=== PATIENT | female | born 1950 | race Caucasian/White ===

== ENCOUNTER 2016-08-08 15:35 | Emergency (ER) | payer MEDICARE, BC ==
[~2016-08-08] VITALS: Ht 167.6 cm; Wt 82.0 kg
[~2016-08-08 15:35] MED LIST: ESTRADIOL; LEXAPRO PO; OXYC60TA8 PO; PRAVASTATIN; TRAZ100T15 PO
[2016-08-08] MEDS ORDERED: SODIUM CHLORIDE FLUSH 10ML SYR IVF ONE (16:00)
[2016-08-08] MEDS ORDERED: SODIUM CHLORIDE 0.9% 1,000ML IVBOLUS ONE (16:00)
[2016-08-08] MEDS ORDERED: ONDANSETRON 2MG/ML, 2ML IVPush ONE (16:00)
[2016-08-08] MEDS ORDERED: HYDR-879 PO (16:16)
[2016-08-08 16:27] LABS: ASPARTATE AMINO TRANSFERASE 20 U/L (15-37); BLOOD UREA NITROGEN 22 mg/dL (7-18)
[2016-08-08] MEDS ORDERED: ONDANSETRON 2MG/ML, 2ML ONE (16:28)
[2016-08-08 16:39] VITALS: BP 126/74
== END 2016-08-08 18:12 | disposition home or self-care (01) ==
LOC: ED 18:06
DX: A08.4 Viral intestinal infection, unspecified (principal); E86.0 Dehydration; R11.2 Nausea with vomiting, unspecified; I10 Essential (primary) hypertension
CPT/HCPCS: 36415; 80053; 85025; 93005; 96361; 96374; 99285; J2405; J7030

== ENCOUNTER 2018-02-27 08:56 | Emergency (ER) | payer MEDICARE, BC ==
[~2018-02-27] VITALS: Ht 165.1 cm; Wt 87.7 kg
[~2018-02-27 08:56] MED LIST changes: +HYDR-3622 PO; +TRAZ-137 PO; -TRAZ100T15 PO
[2018-02-27] MEDS ORDERED: OXYcodone/APAP 5/325MG TABLET PO ONE (09:30)
[2018-02-27] MEDS ORDERED: OXYcodone/APAP 5/325MG TABLET ONE (09:33)
[2018-02-27 09:50] LABS: ANION GAP 8 mmol/L (5-15); BASOPHILS # (AUTO) 0.03 x10^3/uL (0-0.1); BASOPHILS % (AUTO) 0 % (0-1); CALCIUM 9.2 mg/dL (8.5-10.1); CHLORIDE 105 mmol/L (98-107); CREATININE 1.69 mg/dL (0.55-1.02); EOSINOPHILS % (AUTO) 1 % (1-7); LYMPHOCYTES # (AUTO) 1.17 x10^3/uL (1-3.4); LYMPHOCYTES % (AUTO) 15 % (22-44); MD NO; MEAN CORPUSCULAR HGB CONC 33.5 g/dL (32.4-35.8); MEAN CORPUSCULAR VOLUME 92.4 fL (80-100); MEAN PLATELET VOLUME 7.8 fL (7.4-10.4); MONOCYTES % (AUTO) 9 % (2-9); NEUTROPHILS # (AUTO) 5.67 x10^3/uL (1.8-6.8); NEUTROPHILS % (AUTO) 74 % (42-75); PLATELET COUNT 321 x10^3/uL (130-400); RED CELL DISTRIBUTION WIDTH 15.7 % (9.6-15.2)
[2018-02-27 10:31] VITALS: BP 147/99
--- NOTE | 2018-02-27 10:32 | NUR ---
TASK RN: Patient/Caregiver given discharge instructions and they have confirmed that they understand the instructions. Patient ambulatory with steady gait. PAIN LEVEL 6/10
== END 2018-02-27 10:33 | disposition home or self-care (01) ==
LOC: ED 09:53
DX: S39.012A Strain of muscle, fascia and tendon of lower back, initial encounter (principal); S30.0XXA Contusion of lower back and pelvis, initial encounter; I10 Essential (primary) hypertension; I12.9 Hypertensive chronic kidney disease with stage 1 through stage 4 chronic kidney disease, or unspecified chronic kidney disease; N18.9 Chronic kidney disease, unspecified; W01.0XXA Fall on same level from slipping, tripping and stumbling without subsequent striking against object, initial encounter; Y93.89 Activity, other specified; Y92.009 Unspecified place in unspecified non-institutional (private) residence as the place of occurrence of the external cause; Y99.8 Other external cause status
CPT/HCPCS: 36415; 72190; 80048; 82040; 85025; 99284

== ENCOUNTER 2018-12-27 20:57 | Emergency (ER) | payer MEDICARE, BC ==
[2018-12-27] MEDS ORDERED: LORazepam 2 MG/ML, 1ML ONE (21:25)
--- NOTE | 2018-12-27 21:27 | NUR ---
PT STATES SHE STOPPED TAKING CLONAZAPAM A FEW DAYS AGO AFTER BEING ON IT FOR SEVERAL YEARS. PT HAD AN EPISODE OF BM INCONTINENCE ON GURNEY IN ED.
[2018-12-27] MEDS ORDERED: LORazepam 2 MG/ML, 1ML IVPush ONE (21:30)
[2018-12-27 21:45] LABS: BASOPHILS # (AUTO) 0.02 x10^3/uL (0-0.1); BASOPHILS % (AUTO) 0 % (0-1); EOSINOPHILS # (AUTO) 0.06 x10^3/uL (0-0.4); EOSINOPHILS % (AUTO) 1 % (1-7); LYMPHOCYTES # (AUTO) 1.74 x10^3/uL (1-3.4); LYMPHOCYTES % (AUTO) 21 % (22-44); MD NO; MEAN CORPUSCULAR HEMOGLOBIN 31.2 pg (27.0-34.8); MEAN CORPUSCULAR HGB CONC 33.2 g/dL (32.4-35.8); MEAN CORPUSCULAR VOLUME 94.1 fL (80-100); MEAN PLATELET VOLUME 7.8 fL (7.4-10.4); MONOCYTES # (AUTO) 0.55 x10^3/uL (0.2-0.8); MONOCYTES % (AUTO) 7 % (2-9); NEUTROPHILS # (AUTO) 6.01 x10^3/uL (1.8-6.8); NEUTROPHILS % (AUTO) 72 % (42-75); PLATELET COUNT 287 x10^3/uL (130-400); RED BLOOD COUNT 4.88 x10^6/uL (3.82-5.3); RED CELL DISTRIBUTION WIDTH 15.2 % (9.6-15.2)
[2018-12-27 21:52] LABS: ANION GAP 15 mmol/L (5-15); CALCIUM 9.5 mg/dL (8.5-10.1); CHLORIDE 110 mmol/L (98-107); CREATININE 1.04 mg/dL (0.55-1.02)
[2018-12-27 21:55] LABS: TROPONIN I < 0.015 ng/mL (0.000-0.045)
--- NOTE | 2018-12-27 22:17 | NUR ---
PT HAS CALMED DOWN AND NO LONGER WORKING TO BREATHING. PT CLEANED OF FECAL MATERIAL AND FRESH LINENS APPLIED TO GURNEY. PT RESTING ON GURNEY WITH EYES CLOSED, RESP EVEN AND UNLABORED. AT BEDSIDE. PT C/O PAIN IN RIGHT "A LITTLE BIT" Addendum: 12/27/18 at 2228 by [email or web address] RIGHT SHOULDER
--- NOTE | 2018-12-27 22:28 | NUR ---
PT POOR HISTORIAN
[2018-12-27 22:59] VITALS: BP 178/90
[2018-12-27 23:29] LABS: ALANINE AMINOTRANSFERASE 60 U/L (12-78); ALKALINE PHOSPHATASE 90 U/L (45-117); BILIRUBIN, DIRECT 0.1 mg/dL (0.1-0.2); BILIRUBIN,INDIRECT 0.3 mg/dL (0.0-2.0); BILIRUBIN,TOTAL 0.4 mg/dL (0.2-1.0); TOTAL PROTEIN 8.3 g/dL (6.4-8.2)
== END 2018-12-27 23:30 | disposition home or self-care (01) ==
LOC: ED 23:24
DX: F41.1 Generalized anxiety disorder (principal); F10.129 Alcohol abuse with intoxication, unspecified; R06.4 Hyperventilation; I10 Essential (primary) hypertension; Z91.14 Patient's other noncompliance with medication regimen; Y90.5 Blood alcohol level of 100-119 mg/100 ml
CPT/HCPCS: 36415; 71045; 80048; 80076; 80307; 82040; 84484; 85025; 93005; 96374; 99284; J2060

== ENCOUNTER 2019-07-22 14:32 | Inpatient (IN) | payer MEDICARE, BC ==
[~2019-07-22] VITALS: Ht 165.1 cm; Wt 77.9 kg
[~2019-07-22 14:32] MED LIST changes: -TRAZ-137 PO; +TRAZ-175 PO
--- NOTE | 2019-07-22 14:53 | NUR ---
BIB [facility]. PT WAS FOUND UNRESPONSIVE AND SNORING. FSBS 16. [facility] GAVE 25 GM OF D10 IV WITH BS IMPROVEMENT. ANOTHER 10 GM OF D5 GIVEN WITH FSBS AT 190. PT AOX4 AND DOES NOT REMEMBER THE EVENT. HX OF ETOH ABUSE. PT PLACED ON HOSPICE MUSIC THERAPY. WILL CONTINUE TO MONITOR PT.
--- NOTE | 2019-07-22 15:03 | NUR ---
TASK RN: TECH AT BEDSIDE FOR EKG.
--- NOTE | 2019-07-22 15:24 | NUR ---
BREAK RN: PT GIVEN FOOD AND JUICE
--- NOTE | 2019-07-22 15:33 | NUR ---
XRAY AT BEDSIDE
[2019-07-22] MEDS ORDERED: SODIUM CHLORIDE 0.9% 1,000ML IVBOLUS ONE (16:00)
[2019-07-22 16:02] LABS: BASOPHILS # (AUTO) 0.02 x10^3/uL (0-0.1); BASOPHILS % (AUTO) 0 % (0-1); EOSINOPHILS % (AUTO) 0 % (1-7); LYMPHOCYTES % (AUTO) 4 % (22-44); MD NO; MEAN CORPUSCULAR HEMOGLOBIN 30.9 pg (27.0-34.8); MEAN CORPUSCULAR HGB CONC 32.8 g/dL (32.4-35.8); MEAN CORPUSCULAR VOLUME 94.1 fL (80-100); MEAN PLATELET VOLUME 8.1 fL (7.4-10.4); MONOCYTES # (AUTO) 0.15 x10^3/uL (0.2-0.8); MONOCYTES % (AUTO) 2 % (2-9); NEUTROPHILS # (AUTO) 9.53 x10^3/uL (1.8-6.8); NEUTROPHILS % (AUTO) 94 % (42-75); PLATELET COUNT 320 x10^3/uL (130-400); RED BLOOD COUNT 4.29 x10^6/uL (3.82-5.3); RED CELL DISTRIBUTION WIDTH 13.1 % (9.6-15.2)
[2019-07-22 16:09] LABS: ALANINE AMINOTRANSFERASE 26 U/L (12-78); ANION GAP 9 mmol/L (5-15); CALCIUM 8.8 mg/dL (8.5-10.1); CHLORIDE 107 mmol/L (98-107); CREATININE 0.74 mg/dL (0.55-1.02)
[2019-07-22 16:13] LABS: ALKALINE PHOSPHATASE 68 U/L (45-117); BILIRUBIN,TOTAL 0.2 mg/dL (0.2-1.0); TOTAL PROTEIN 7.5 g/dL (6.4-8.2); TROPONIN I < 0.015 ng/mL (0.000-0.045)
[2019-07-22 16:45] LABS: MICROSCOPIC NOT IND
[2019-07-22 16:56] LABS: AMPHETAMINE SCREEN, URINE Negative (Negative); BARBITURATE SCREEN, URINE Negative (Negative); BENZODIAZEPINE SCREEN, URINE Negative (Negative); CANNABINOID SCREEN, URINE Negative (Negative); COCAINE SCREEN, URINE Negative (Negative); METHADONE SCREEN, URINE Negative (Negative); OPIATE SCREEN, URINE Positive (Negative)
[2019-07-22] MEDS ORDERED: DEXTROSE 50%, 50ML SYRINGE ONE (17:44)
[2019-07-22] MEDS ORDERED: DEXTROSE 50%, 50ML SYRINGE IVPush ONE (18:00)
[2019-07-22] MEDS ORDERED: DEXTROSE 10% 1,000 ML IV SCH (18:00)
--- NOTE | 2019-07-22 18:05 | NUR ---
WENT INTO ROOM TO CHECK ON PT. PER DAUGHTER, THE PT SUDDENLY BECAME "SWEATY AND HOT". ASSESSED PT'S VS. VS STABLE. CHECKED FSBS AND IT WAS 23. INFORMED MD AND PER MD ADMINISTERED 1 AMP OF D50. BS RECHECKED AND 125. PT VS STABLE AND BECAME AOX4. STARTED PT ON CONTINUOUS DRIP OF D10. WILL CONTINUE TO MONITOR.
[2019-07-22] MEDS ORDERED: ENALAPRILAT 1.25 MG/ML, 2ML IVPush PRN (19:00)
[2019-07-22] MEDS ORDERED: DEXTROSE 4 GM TAB.CHEW PO PRN (19:00)
[2019-07-22] MEDS ORDERED: BISACODYL 10 MG SUPP PR PRN (19:00)
[2019-07-22] MEDS ORDERED: POLYETHYLENE GLYCOL 17 GM PACKET PO PRN (19:00)
[2019-07-22] MEDS ORDERED: GLUCAGON 1 MG IM PRN (19:00)
[2019-07-22] MEDS ORDERED: ONDANSETRON ODT 4 MG PO PRN (19:00)
[2019-07-22] MEDS ORDERED: ONDANSETRON 2MG/ML, 2ML IVPush PRN (19:00)
[2019-07-22] MEDS ORDERED: DOCUSATE 100 MG CAPSULE PO PRN (19:00)
--- NOTE | 2019-07-22 19:28 | NUR ---
Pt given 8oz of OJ and drank without difficulty with RN assistance.
[2019-07-22] MEDS: DEXTROSE 10% 1,000 ML IV SCH (19:59)
[2019-07-22] MEDS: ENOXAPARIN 40 MG/0.4 ML SQ SCH (20:00)
[2019-07-22] MEDS: DEXTROSE 50%, 50ML SYRINGE IVPush PRN ×2 (20:00→22:00)
[2019-07-22] MEDS: SODIUM CHLORIDE FLUSH 10ML SYR IVF SCH (20:06)
[2019-07-22] MEDS ORDERED: CLON1TAB11 PO (20:19)
[2019-07-22] MEDS ORDERED: DICL100G29 TP (20:25)
[2019-07-22] MEDS ORDERED: OXYC-432 PO (20:25)
[2019-07-22] MEDS ORDERED: LIOT25TA12 PO (20:25)
[2019-07-22] MEDS ORDERED: ROSU5TAB12 PO (20:25)
[2019-07-22] MEDS ORDERED: ATEN25TA PO (20:25)
[2019-07-22] MEDS ORDERED: LISI-420 PO (20:25)
[2019-07-22] MEDS ORDERED: AMLO5TAB10 PO (20:25)
[2019-07-22] MEDS ORDERED: EZET10TA48 PO (20:25)
[2019-07-22] MEDS ORDERED: FLUO40CA2 PO (20:25)
[2019-07-22] MEDS ORDERED: PROG100C10 PO (20:25)
[2019-07-22] MEDS ORDERED: MORP-30 PO (20:25)
[2019-07-23 00:14] VITALS: BP 135/66
[2019-07-23] MEDS ORDERED: OMNIPAQUE 350 MG/ML, 100ML BOTTLE ONE (00:19)
[2019-07-23] MEDS: DEXTROSE 10% 1,000 ML IV SCH ×3 (01:30→07:58)
[2019-07-23] MEDS: ACETAMINOPHEN 325 MG TABLET PO PRN ×4 (01:33→20:33)
[2019-07-23] MEDS ORDERED: OXYcodone/APAP 10/325MG TABLET PO ONE (05:25)
[2019-07-23 06:19] LABS: ALBUMIN 2.7 g/dL (3.4-5.0); ANION GAP 7 mmol/L (5-15); CALCIUM 8.9 mg/dL (8.5-10.1); CHLORIDE 111 mmol/L (98-107)
[2019-07-23 06:22] LABS: ALANINE AMINOTRANSFERASE 23 U/L (12-78); ALKALINE PHOSPHATASE 61 U/L (45-117); BILIRUBIN,TOTAL 0.4 mg/dL (0.2-1.0); CREATININE 0.75 mg/dL (0.55-1.02); TOTAL PROTEIN 6.7 g/dL (6.4-8.2)
[2019-07-23 06:25] LABS: BASOPHILS # (AUTO) 0.02 x10^3/uL (0-0.1); BASOPHILS % (AUTO) 0 % (0-1); EOSINOPHILS % (AUTO) 0 % (1-7); LYMPHOCYTES # (AUTO) 1.07 x10^3/uL (1-3.4); LYMPHOCYTES % (AUTO) 14 % (22-44); MD NO; MEAN CORPUSCULAR HEMOGLOBIN 30.5 pg (27.0-34.8); MEAN CORPUSCULAR HGB CONC 32.5 g/dL (32.4-35.8); MEAN CORPUSCULAR VOLUME 93.6 fL (80-100); MEAN PLATELET VOLUME 8.4 fL (7.4-10.4); MONOCYTES # (AUTO) 0.58 x10^3/uL (0.2-0.8); MONOCYTES % (AUTO) 8 % (2-9); NEUTROPHILS # (AUTO) 5.76 x10^3/uL (1.8-6.8); NEUTROPHILS % (AUTO) 78 % (42-75); PLATELET COUNT 278 x10^3/uL (130-400); RED BLOOD COUNT 3.87 x10^6/uL (3.82-5.3); RED CELL DISTRIBUTION WIDTH 13.7 % (9.6-15.2)
[2019-07-23] MEDS: EZETIMIBE 10 MG TABLET PO SCH (07:57)
[2019-07-23] MEDS: LISINOPRIL 20 MG TABLET PO SCH (07:57)
[2019-07-23 07:58] VITALS: BP 130/74
[2019-07-23] MEDS: ATENOLOL 25 MG TABLET PO SCH (07:58)
[2019-07-23] MEDS: AMLODIPINE 5 MG TABLET PO SCH (07:58)
[2019-07-23] MEDS: FLUOXETINE HCL 20 MG CAPSULE PO SCH (07:58)
[2019-07-23] MEDS ORDERED: LIDODERM 5% PATCH TD ONE (08:18)
[2019-07-23] MEDS: LIDODERM 5% PATCH TD SCH (08:28)
[2019-07-23] MEDS: SODIUM CHLORIDE FLUSH 10ML SYR IVF SCH ×2 (08:28→20:27)
[2019-07-23] MEDS ORDERED: ROSUVASTATIN CALCIUM PO SCH (09:00)
[2019-07-23] MEDS ORDERED: LIOTHYRONINE 25 MCG TABLET PO SCH (09:00)
[2019-07-23] MEDS ORDERED: ATORVASTATIN 20 MG TABLET PO SCH (09:00)
[2019-07-23] MEDS: DEXTROSE 5% 1,000 ML IV SCH (10:12)
[2019-07-23 12:49] VITALS: BP 115/67
[2019-07-23] MEDS: IBUPROFEN 200 MG TABLET PO PRN ×2 (16:32→22:36)
[2019-07-23 20:19] VITALS: BP 147/83
[2019-07-23] MEDS: ATORVASTATIN 20 MG TABLET PO SCH (20:27)
[2019-07-23] MEDS: ENOXAPARIN 40 MG/0.4 ML SQ SCH (20:27)
[2019-07-23] MEDS: LIDODERM REMOVE PATCH NOTE XX SCH (20:27)
[2019-07-24 00:15] VITALS: BP 159/92
[2019-07-24] MEDS: ACETAMINOPHEN 325 MG TABLET PO PRN ×2 (02:10→08:02)
[2019-07-24] MEDS: LIOTHYRONINE 5 MCG TABLET PO SCH (04:47)
[2019-07-24] MEDS: IBUPROFEN 200 MG TABLET PO PRN (04:47)
[2019-07-24] MEDS: DEXTROSE 5% 1,000 ML IV SCH (04:50)
[2019-07-24 05:40] LABS: BASOPHILS # (AUTO) 0.02 x10^3/uL (0-0.1); BASOPHILS % (AUTO) 0 % (0-1); EOSINOPHILS # (AUTO) 0.01 x10^3/uL (0-0.4); EOSINOPHILS % (AUTO) 0 % (1-7); LYMPHOCYTES # (AUTO) 1.33 x10^3/uL (1-3.4); LYMPHOCYTES % (AUTO) 22 % (22-44); MD NO; MEAN CORPUSCULAR HEMOGLOBIN 30.6 pg (27.0-34.8); MEAN CORPUSCULAR HGB CONC 32.8 g/dL (32.4-35.8); MEAN CORPUSCULAR VOLUME 93.5 fL (80-100); MEAN PLATELET VOLUME 8.2 fL (7.4-10.4); MONOCYTES % (AUTO) 10 % (2-9); NEUTROPHILS # (AUTO) 4.05 x10^3/uL (1.8-6.8); NEUTROPHILS % (AUTO) 68 % (42-75); PLATELET COUNT 311 x10^3/uL (130-400); RED BLOOD COUNT 4.11 x10^6/uL (3.82-5.3); RED CELL DISTRIBUTION WIDTH 13.5 % (9.6-15.2)
[2019-07-24 05:46] LABS: ALBUMIN 3.2 g/dL (3.4-5.0); ANION GAP 9 mmol/L (5-15); CALCIUM 9.5 mg/dL (8.5-10.1); CHLORIDE 108 mmol/L (98-107)
[2019-07-24 05:51] LABS: ALANINE AMINOTRANSFERASE 29 U/L (12-78); ALKALINE PHOSPHATASE 67 U/L (45-117); BILIRUBIN,TOTAL 0.5 mg/dL (0.2-1.0); TOTAL PROTEIN 7.6 g/dL (6.4-8.2)
[2019-07-24 07:10] VITALS: BP 156/90
[2019-07-24] MEDS: EZETIMIBE 10 MG TABLET PO SCH (08:01)
[2019-07-24] MEDS: LISINOPRIL 20 MG TABLET PO SCH (08:01)
[2019-07-24] MEDS: ATENOLOL 25 MG TABLET PO SCH (08:01)
[2019-07-24] MEDS: FLUOXETINE HCL 20 MG CAPSULE PO SCH (08:01)
[2019-07-24] MEDS: AMLODIPINE 5 MG TABLET PO SCH (08:01)
[2019-07-24] MEDS: SODIUM CHLORIDE FLUSH 10ML SYR IVF SCH ×2 (08:01→20:32)
[2019-07-24] MEDS: LIDODERM 5% PATCH TD SCH (08:02)
[2019-07-24 13:55] VITALS: BP 140/98
[2019-07-24] MEDS: OXYcodone/APAP 5/325MG TABLET PO PRN ×2 (14:04→20:42)
[2019-07-24 19:27] VITALS: BP 147/89
[2019-07-24] MEDS: LIDODERM REMOVE PATCH NOTE XX SCH (20:30)
[2019-07-24] MEDS: ENOXAPARIN 40 MG/0.4 ML SQ SCH (20:31)
[2019-07-24] MEDS: ATORVASTATIN 20 MG TABLET PO SCH (20:31)
[2019-07-25] MEDS: DEXTROSE 5% 1,000 ML IV SCH (00:32)
[2019-07-25 00:39] VITALS: BP 147/95
[2019-07-25] MEDS: OXYcodone/APAP 5/325MG TABLET PO PRN ×2 (02:41→08:51)
[2019-07-25] MEDS: LIOTHYRONINE 5 MCG TABLET PO SCH (05:52)
[2019-07-25] MEDS: SODIUM CHLORIDE FLUSH 10ML SYR IVF SCH (08:01)
[2019-07-25] MEDS: LIDODERM 5% PATCH TD SCH (08:01)
[2019-07-25] MEDS: FLUOXETINE HCL 20 MG CAPSULE PO SCH (08:02)
[2019-07-25] MEDS: EZETIMIBE 10 MG TABLET PO SCH (08:02)
[2019-07-25] MEDS: AMLODIPINE 5 MG TABLET PO SCH (08:02)
[2019-07-25] MEDS: ATENOLOL 25 MG TABLET PO SCH (08:03)
[2019-07-25 08:14] VITALS: BP 142/99
[2019-07-25] MEDS ORDERED: LISINOPRIL 20 MG TABLET PO SCH (09:00)
[2019-07-25] MEDS ORDERED: LISI-170 PO (10:42)
[2019-07-25] MEDS ORDERED: LIOT5TAB10 PO (10:42)
[2019-07-25] MEDS ORDERED: AMLO10TA8 PO (10:42)
[2019-07-25] MEDS ORDERED: LIDO700A20 TD (10:42)
[2019-07-25 13:54] VITALS: BP 123/77
[2019-07-26] MEDS ORDERED: AMLODIPINE 10 MG TAB PO SCH (09:00)
== END 2019-07-25 15:41 | disposition home or self-care (01) | DRG 640 ==
LOC: ED 17:15 → EDIP 17:16 → ED 17:33 → 4NW 19:38 → 4NE 20:12
PROVIDERS: ADMIT Internal Medicine; ATTEND Internal Medicine
DX: E15 Nondiabetic hypoglycemic coma (principal); G93.41 Metabolic encephalopathy; F13.20 Sedative, hypnotic or anxiolytic dependence, uncomplicated; E03.9 Hypothyroidism, unspecified; F41.1 Generalized anxiety disorder; G89.29 Other chronic pain; I10 Essential (primary) hypertension; M79.7 Fibromyalgia; Z80.1 Family history of malignant neoplasm of trachea, bronchus and lung; Z85.828 Personal history of other malignant neoplasm of skin; Z03.818 Encounter for observation for suspected exposure to other biological agents ruled out; Z86.59 Personal history of other mental and behavioral disorders; Z90.710 Acquired absence of both cervix and uterus; Z79.899 Other long term (current) drug therapy
CPT/HCPCS: 36415; 70450; 71045; 74170; 80053; 80307; 80377; 81003; 82607; 82962; 83525; 83735; 84100; 84145; 84436; 84443; 84484; 84681; 85025; 85651; 93005; 96374; 96376; 99291; G0378; J1650; J7070; Q9967; G0481; J7030; U0001-CS

== ENCOUNTER 2020-08-29 23:18 | Emergency (ER) | payer MEDICARE, BC ==
[~2020-08-29] VITALS: Ht 165.1 cm; Wt 69.7 kg
[~2020-08-29 23:18] MED LIST changes: +AMLO-210 PO; +AMLO-211 PO; +ATEN25TA PO; +CLON1TAB11 PO; +DICL100G29 TP; +EZET10TA48 PO; +FLUO40CA2 PO; +LIDO700A20 TD; +LIOT25TA12 PO; +LIOT5TAB10 PO; +LISI-170 PO; +LISI20TA21 PO; +MORP-30 PO; +OXYC1TAB18 PO; +PROG100C10 PO; +ROSU5TAB12 PO
[2020-08-30] MEDS ORDERED: ONDANSETRON 2MG/ML, 2ML ONE (00:10)
[2020-08-30] MEDS ORDERED: LORazepam 2 MG/ML, 1ML ONE ×2 (00:11→02:42)
[2020-08-30] MEDS ORDERED: LORazepam 2 MG/ML, 1ML IVPush ONE ×2 (00:30→03:00)
[2020-08-30] MEDS ORDERED: ONDANSETRON 2MG/ML, 2ML IVPush ONE (00:30)
[2020-08-30] MEDS ORDERED: SODIUM CHLORIDE 0.9% 1,000ML IVBOLUS ONE (00:30)
[2020-08-30 00:43] LABS: BASOPHILS % (AUTO) 0 % (0-1); EOSINOPHILS % (AUTO) 0 % (1-7); LYMPHOCYTES % (AUTO) 11 % (22-44); MEAN CORPUSCULAR HEMOGLOBIN 29.8 pg (27.0-34.8); MEAN CORPUSCULAR HGB CONC 33.9 g/dL (32.4-35.8); MEAN PLATELET VOLUME 7.4 fL (7.4-10.4); MONOCYTES % (AUTO) 8 % (2-9); NEUTROPHILS % (AUTO) 81 % (42-75); PLATELET COUNT 287 x10^3/uL (130-400); RED BLOOD COUNT 4.71 x10^6/uL (3.82-5.3); RED CELL DISTRIBUTION WIDTH 14.1 % (9.6-15.2)
[2020-08-30 00:55] LABS: ALBUMIN 3.9 g/dL (3.4-5.0); ANION GAP 9 mmol/L (5-15); CALCIUM 8.8 mg/dL (8.5-10.1); CHLORIDE 102 mmol/L (98-107)
[2020-08-30 01:01] LABS: ALANINE AMINOTRANSFERASE 180 U/L (12-78); ALKALINE PHOSPHATASE 99 U/L (45-117); BILIRUBIN,TOTAL 0.9 mg/dL (0.2-1.0); CREATININE 0.78 mg/dL (0.55-1.02); TROPONIN I < 0.015 ng/mL (0.000-0.045)
--- NOTE | 2020-08-30 02:54 | NUR ---
Medicated per order with ativan, IV dc cath intact. VSS. Pt given rx and instruct, will fu with pcp or blanche villanueva. Return to ER if worse or concerns. picking pt up.
[2020-08-30 02:55] VITALS: BP 135/71
== END 2020-08-30 03:16 | disposition home or self-care (01) ==
LOC: ED 08-30 02:46
DX: F10.131 Alcohol abuse with withdrawal delirium (principal); F41.9 Anxiety disorder, unspecified; I10 Essential (primary) hypertension; Y90.0 Blood alcohol level of less than 20 mg/100 ml
CPT/HCPCS: 36415; 71045; 80053; 80320; 84484; 85025; 93005; 96361; 96374; 96375; 96376; 99285; J2060; J2405; J7030; G0480

== ENCOUNTER 2020-09-12 08:38 | Inpatient (IN) | payer MEDICARE, BC ==
[~2020-09-12] VITALS: Ht 165.1 cm; Wt 72.4 kg
[2020-09-12] MEDS ORDERED: SODIUM CHLORIDE FLUSH 10ML SYR IVF ONE (09:30)
[2020-09-12] MEDS ORDERED: SODIUM CHLORIDE 0.9% 1,000ML IVBOLUS ONE ×2 (09:30→12:00)
[2020-09-12] MEDS ORDERED: ONDANSETRON 2MG/ML, 2ML IVPush ONE (09:30)
[2020-09-12] MEDS ORDERED: THIAMINE 100MG TABLET PO ONE (09:30)
[2020-09-12 09:36] LABS: BASOPHILS % (AUTO) 1 % (0-1); EOSINOPHILS % (AUTO) 0 % (1-7); LYMPHOCYTES % (AUTO) 14 % (22-44); MEAN CORPUSCULAR HEMOGLOBIN 29.5 pg (27.0-34.8); MEAN CORPUSCULAR HGB CONC 33.3 g/dL (32.4-35.8); MEAN PLATELET VOLUME 7.1 fL (7.4-10.4); MONOCYTES % (AUTO) 7 % (2-9); NEUTROPHILS % (AUTO) 79 % (42-75); PLATELET COUNT 424 x10^3/uL (130-400); RED BLOOD COUNT 4.71 x10^6/uL (3.82-5.3); RED CELL DISTRIBUTION WIDTH 14.9 % (9.6-15.2)
[2020-09-12] MEDS ORDERED: ONDANSETRON 2MG/ML, 2ML ONE (09:42)
[2020-09-12] MEDS ORDERED: THIAMINE 100MG TABLET ONE (09:42)
[2020-09-12] MEDS ORDERED: LORazepam 2 MG/ML, 1ML ONE ×3 (09:42→15:50)
[2020-09-12 09:43] LABS: ALANINE AMINOTRANSFERASE 280 U/L (12-78); ANION GAP 15 mmol/L (5-15); CALCIUM 9.5 mg/dL (8.5-10.1); CHLORIDE 102 mmol/L (98-107); CREATININE 0.86 mg/dL (0.55-1.02)
[2020-09-12 09:45] LABS: ALKALINE PHOSPHATASE 109 U/L (45-117); BILIRUBIN,TOTAL 1.1 mg/dL (0.2-1.0); TOTAL PROTEIN 8.3 g/dL (6.4-8.2)
[2020-09-12] MEDS: LORazepam 2 MG/ML, 1ML IVPush PRN ×4 (09:47→17:33)
--- NOTE | 2020-09-12 11:10 | NUR ---
Pt wheeled to bathroom for UA. Pt unsteady on feet. A&Ox4.
[2020-09-12 11:29] LABS: MICROSCOPIC INDICATED
--- NOTE | 2020-09-12 12:08 | NUR ---
TASK RN: U/S AT BEDSIDE, LUNCH TRAY PROVIDED OKAY PER MD.
[2020-09-12] MEDS ORDERED: ENALAPRILAT 1.25 MG/ML, 2ML IVPush PRN (14:30)
--- NOTE | 2020-09-12 14:55 | NUR ---
[facility]. Med ordered from pharmacy.
--- NOTE | 2020-09-12 14:56 | NUR ---
Anika, daughter, ask patient about what is okay to update.
[2020-09-12] MEDS ORDERED: LORazepam 1MG TABLET PO PRN ×2 (15:00)
[2020-09-12] MEDS ORDERED: LORazepam 0.5MG TABLET PO PRN (15:00)
[2020-09-12] MEDS ORDERED: LORazepam 2 MG/ML, 1ML IV PRN ×3 (15:00)
--- NOTE | 2020-09-12 15:47 | NUR ---
Med sent for at 1455.
[2020-09-12] MEDS: LORazepam 2 MG/ML, 1ML IV PRN ×2 (15:51→19:42)
--- NOTE | 2020-09-12 15:56 | NUR ---
Pharmacy called to inquire about medication.
--- NOTE | 2020-09-12 17:10 | NUR ---
Pt transported with all belongings which are shirt, pants and keys.
[2020-09-12 17:22] VITALS: BP 158/86
[2020-09-12] MEDS: POTASSIUM CHLORIDE 20 MEQ, MAGNESIUM SULFATE 2 GM, THIAMINE 200 MG, MVI ADULT 10 ML, FO... IV SCH (17:57)
[2020-09-12] MEDS: ENOXAPARIN 40 MG/0.4 ML SQ SCH (17:58)
[2020-09-12 18:17] VITALS: BP 158/86
[2020-09-12] MEDS: ACETAMINOPHEN 325 MG TABLET PO PRN (19:43)
[2020-09-12 19:50] VITALS: BP 162/94
[2020-09-12 20:42] VITALS: BP 160/92
[2020-09-13] VITALS (8 sets, daily range): BP systolic 145–171; BP diastolic 81–110
[2020-09-13] MEDS: LORazepam 1MG TABLET PO PRN ×3 (01:17→11:45)
[2020-09-13 05:10] LABS: BASOPHILS % (AUTO) 1 % (0-1); EOSINOPHILS % (AUTO) 0 % (1-7); LYMPHOCYTES % (AUTO) 32 % (22-44); MEAN CORPUSCULAR HEMOGLOBIN 29.9 pg (27.0-34.8); MEAN CORPUSCULAR HGB CONC 33.4 g/dL (32.4-35.8); MEAN PLATELET VOLUME 7.2 fL (7.4-10.4); MONOCYTES % (AUTO) 14 % (2-9); NEUTROPHILS % (AUTO) 53 % (42-75); PLATELET COUNT 309 x10^3/uL (130-400); RED BLOOD COUNT 4.28 x10^6/uL (3.82-5.3); RED CELL DISTRIBUTION WIDTH 14.9 % (9.6-15.2)
[2020-09-13] MEDS: ACETAMINOPHEN 325 MG TABLET PO PRN ×3 (05:10→20:10)
[2020-09-13] MEDS: DOCUSATE 100 MG CAPSULE PO PRN ×2 (05:10→11:45)
[2020-09-13 05:20] LABS: ANION GAP 7 mmol/L (5-15); CALCIUM 8.9 mg/dL (8.5-10.1); CHLORIDE 104 mmol/L (98-107); CREATININE 0.83 mg/dL (0.55-1.02)
[2020-09-13 05:21] LABS: ALANINE AMINOTRANSFERASE 188 U/L (12-78); ALBUMIN 3.4 g/dL (3.4-5.0)
[2020-09-13 05:23] LABS: ALKALINE PHOSPHATASE 94 U/L (45-117); BILIRUBIN,TOTAL 1.3 mg/dL (0.2-1.0); TOTAL PROTEIN 6.9 g/dL (6.4-8.2)
[2020-09-13] MEDS: ONDANSETRON ODT 4 MG PO PRN (05:44)
[2020-09-13] MEDS ORDERED: ENALAPRILAT 1.25 MG/ML, 1ML ONE (07:36)
[2020-09-13] MEDS: LORazepam 2 MG/ML, 1ML IV PRN ×4 (07:43→18:43)
[2020-09-13] MEDS: EZETIMIBE 10 MG TABLET PO SCH (11:45)
[2020-09-13] MEDS: LISINOPRIL 20 MG TABLET PO SCH (11:45)
[2020-09-13] MEDS: ONDANSETRON 2MG/ML, 2ML IVPush PRN (11:46)
[2020-09-13] MEDS: AMLODIPINE 10 MG TAB PO SCH (11:46)
[2020-09-13] MEDS: ATENOLOL 25 MG TABLET PO SCH (11:46)
[2020-09-13] MEDS: ENOXAPARIN 40 MG/0.4 ML SQ SCH (16:12)
[2020-09-13] MEDS: POTASSIUM CHLORIDE 20 MEQ, MAGNESIUM SULFATE 2 GM, THIAMINE 200 MG, MVI ADULT 10 ML, FO... IV SCH (16:55)
[2020-09-13] MEDS ORDERED: CHLORDIAZEPOXIDE 5 MG CAPSULE PO PRN (20:00)
[2020-09-14] MEDS: DOCUSATE 100 MG CAPSULE PO PRN (00:46)
[2020-09-14] MEDS: ACETAMINOPHEN 325 MG TABLET PO PRN ×3 (00:46→17:01)
[2020-09-14] MEDS: LORazepam 2 MG/ML, 1ML IV PRN ×2 (00:54→04:32)
[2020-09-14] MEDS: ONDANSETRON ODT 4 MG PO PRN (00:54)
[2020-09-14 00:55] VITALS: BP 158/94
[2020-09-14 04:31] VITALS: BP 135/84
[2020-09-14 08:45] VITALS: BP 144/85
[2020-09-14] MEDS: EZETIMIBE 10 MG TABLET PO SCH (09:48)
[2020-09-14] MEDS: LISINOPRIL 20 MG TABLET PO SCH (09:49)
[2020-09-14] MEDS: LORazepam 1MG TABLET PO PRN ×5 (09:49→23:43)
[2020-09-14] MEDS: ATENOLOL 25 MG TABLET PO SCH (09:49)
[2020-09-14] MEDS: AMLODIPINE 10 MG TAB PO SCH (09:49)
[2020-09-14] MEDS: ONDANSETRON 2MG/ML, 2ML IVPush PRN (10:32)
[2020-09-14] MEDS: ENOXAPARIN 40 MG/0.4 ML SQ SCH (13:49)
[2020-09-14 13:58] VITALS: BP 142/90
[2020-09-14 20:00] VITALS: BP 126/73
[2020-09-15 00:54] VITALS: BP 137/88
[2020-09-15 06:24] LABS: ALBUMIN 3.2 g/dL (3.4-5.0); ANION GAP 6 mmol/L (5-15); CHLORIDE 107 mmol/L (98-107)
[2020-09-15 06:27] LABS: ALANINE AMINOTRANSFERASE 164 U/L (12-78); ALKALINE PHOSPHATASE 84 U/L (45-117); BILIRUBIN,TOTAL 0.5 mg/dL (0.2-1.0); CREATININE 0.68 mg/dL (0.55-1.02); TOTAL PROTEIN 6.5 g/dL (6.4-8.2)
[2020-09-15 07:34] VITALS: BP 134/91
[2020-09-15] MEDS: EZETIMIBE 10 MG TABLET PO SCH (08:00)
[2020-09-15] MEDS: ACETAMINOPHEN 325 MG TABLET PO PRN ×2 (08:00→16:30)
[2020-09-15] MEDS: LISINOPRIL 20 MG TABLET PO SCH (08:00)
[2020-09-15] MEDS: ATENOLOL 25 MG TABLET PO SCH (08:01)
[2020-09-15] MEDS: DOCUSATE 100 MG CAPSULE PO PRN (08:01)
[2020-09-15] MEDS: AMLODIPINE 10 MG TAB PO SCH (08:01)
[2020-09-15] MEDS: LORazepam 1MG TABLET PO PRN (09:13)
[2020-09-15] MEDS: THIAMINE 200 MG in SODIUM CHLORIDE 0.9% 50 ML IV SCH (11:21)
[2020-09-15 13:49] VITALS: BP 122/81
[2020-09-15] MEDS: ENOXAPARIN 40 MG/0.4 ML SQ SCH (14:39)
[2020-09-15] MEDS: ONDANSETRON 2MG/ML, 2ML IVPush PRN (20:24)
[2020-09-15] MEDS ORDERED: SUMATRIPTAN 25 MG TABLET PO PRN (20:30)
[2020-09-15 21:13] VITALS: BP 137/85
[2020-09-15] MEDS ORDERED: TEMAZEPAM 15 MG CAPSULE ONE (22:44)
[2020-09-15] MEDS ORDERED: TEMAZEPAM 15 MG CAPSULE PO ONE (23:00)
[2020-09-16 00:32] VITALS: BP 138/84
[2020-09-16] MEDS: ACETAMINOPHEN 325 MG TABLET PO PRN ×3 (00:43→13:45)
[2020-09-16 06:35] VITALS: BP 120/83
[2020-09-16] MEDS: THIAMINE 200 MG in SODIUM CHLORIDE 0.9% 50 ML IV SCH (09:25)
[2020-09-16] MEDS: AMLODIPINE 10 MG TAB PO SCH (09:26)
[2020-09-16] MEDS: EZETIMIBE 10 MG TABLET PO SCH (09:27)
[2020-09-16] MEDS: LISINOPRIL 20 MG TABLET PO SCH (09:27)
[2020-09-16] MEDS: ATENOLOL 25 MG TABLET PO SCH (09:27)
[2020-09-16] MEDS: ONDANSETRON ODT 4 MG PO PRN ×2 (10:39→20:06)
[2020-09-16] MEDS: DOCUSATE 100 MG CAPSULE PO PRN (10:42)
[2020-09-16 12:49] VITALS: BP 121/72
[2020-09-16] MEDS: ENOXAPARIN 40 MG/0.4 ML SQ SCH (13:45)
[2020-09-16] MEDS: BUTALB/APAP/CAFFEINE 50MG/325MG/40MG PO PRN ×2 (17:32→22:58)
[2020-09-16 20:11] VITALS: BP 113/76
[2020-09-17 00:36] VITALS: BP 132/87
[2020-09-17] MEDS: ACETAMINOPHEN 325 MG TABLET PO PRN ×3 (01:05→22:56)
[2020-09-17] MEDS: ONDANSETRON ODT 4 MG PO PRN ×2 (02:10→05:43)
[2020-09-17 06:19] LABS: BASOPHILS % (AUTO) 1 % (0-1); EOSINOPHILS % (AUTO) 3 % (1-7); LYMPHOCYTES % (AUTO) 28 % (22-44); MEAN CORPUSCULAR HEMOGLOBIN 29.8 pg (27.0-34.8); MEAN CORPUSCULAR HGB CONC 33.4 g/dL (32.4-35.8); MEAN PLATELET VOLUME 8.2 fL (7.4-10.4); MONOCYTES % (AUTO) 10 % (2-9); NEUTROPHILS % (AUTO) 59 % (42-75); PLATELET COUNT 254 x10^3/uL (130-400); RED BLOOD COUNT 4.06 x10^6/uL (3.82-5.3); RED CELL DISTRIBUTION WIDTH 14.6 % (9.6-15.2)
[2020-09-17 06:21] LABS: CHLORIDE 105 mmol/L (98-107)
[2020-09-17 06:28] LABS: ALANINE AMINOTRANSFERASE 137 U/L (12-78); ALBUMIN 3.2 g/dL (3.4-5.0); ALKALINE PHOSPHATASE 80 U/L (45-117); ANION GAP 4 mmol/L (5-15); BILIRUBIN,TOTAL 0.3 mg/dL (0.2-1.0); CALCIUM 9.2 mg/dL (8.5-10.1); CREATININE 0.84 mg/dL (0.55-1.02); TOTAL PROTEIN 6.6 g/dL (6.4-8.2)
[2020-09-17 07:45] VITALS: BP 142/90
[2020-09-17] MEDS ORDERED: POTASSIUM CHLORIDE 20 MEQ TAB.ER.PRT PO ONE (09:00)
[2020-09-17] MEDS: EZETIMIBE 10 MG TABLET PO SCH (09:51)
[2020-09-17] MEDS: AMLODIPINE 10 MG TAB PO SCH (09:51)
[2020-09-17] MEDS: BUTALB/APAP/CAFFEINE 50MG/325MG/40MG PO PRN ×2 (09:51→18:30)
[2020-09-17] MEDS: LISINOPRIL 20 MG TABLET PO SCH (09:51)
[2020-09-17] MEDS: ATENOLOL 25 MG TABLET PO SCH (09:51)
[2020-09-17] MEDS: THIAMINE 200 MG in SODIUM CHLORIDE 0.9% 50 ML IV SCH ×2 (09:52→11:12)
[2020-09-17 13:35] VITALS: BP 130/81
[2020-09-17] MEDS ORDERED: GADOTERATE 7.5 MMOL/15ML SYR ONE (17:08)
[2020-09-17] MEDS: ENOXAPARIN 40 MG/0.4 ML SQ SCH (18:30)
[2020-09-17 20:00] VITALS: BP 136/84
[2020-09-17] MEDS ORDERED: TRAZODONE 50MG TABLET PO ONE (20:00)
[2020-09-17] MEDS ORDERED: HALOPERIDOL 5 MG/ML IM ONE (23:30)
[2020-09-18 01:06] VITALS: BP 123/66
[2020-09-18] MEDS: ACETAMINOPHEN 325 MG TABLET PO PRN (05:44)
[2020-09-18 05:48] LABS: BASOPHILS % (AUTO) 1 % (0-1); EOSINOPHILS % (AUTO) 3 % (1-7); LYMPHOCYTES % (AUTO) 32 % (22-44); MEAN CORPUSCULAR HEMOGLOBIN 29.7 pg (27.0-34.8); MEAN CORPUSCULAR HGB CONC 33.1 g/dL (32.4-35.8); MEAN PLATELET VOLUME 8.3 fL (7.4-10.4); MONOCYTES % (AUTO) 10 % (2-9); NEUTROPHILS % (AUTO) 55 % (42-75); PLATELET COUNT 242 x10^3/uL (130-400); RED BLOOD COUNT 4.19 x10^6/uL (3.82-5.3); RED CELL DISTRIBUTION WIDTH 14.7 % (9.6-15.2)
[2020-09-18 05:56] LABS: ANION GAP 4 mmol/L (5-15); CALCIUM 9.2 mg/dL (8.5-10.1); CHLORIDE 108 mmol/L (98-107)
[2020-09-18 06:00] LABS: ALANINE AMINOTRANSFERASE 113 U/L (12-78); ALBUMIN 3.4 g/dL (3.4-5.0); ALKALINE PHOSPHATASE 77 U/L (45-117); BILIRUBIN,TOTAL 0.3 mg/dL (0.2-1.0); CREATININE 0.78 mg/dL (0.55-1.02); TOTAL PROTEIN 7.1 g/dL (6.4-8.2)
[2020-09-18] MEDS: ATENOLOL 25 MG TABLET PO SCH (08:45)
[2020-09-18] MEDS: AMLODIPINE 10 MG TAB PO SCH (08:45)
[2020-09-18] MEDS: BUTALB/APAP/CAFFEINE 50MG/325MG/40MG PO PRN (08:45)
[2020-09-18] MEDS: EZETIMIBE 10 MG TABLET PO SCH (08:45)
[2020-09-18] MEDS: LISINOPRIL 20 MG TABLET PO SCH (08:45)
[2020-09-18 08:50] VITALS: BP 142/87
[2020-09-18] MEDS: THIAMINE 200 MG in SODIUM CHLORIDE 0.9% 50 ML IV SCH (09:59)
[2020-09-18 13:59] VITALS: BP 114/76
[2020-09-18] MEDS ORDERED: FLUOXETINE HCL 20 MG CAPSULE PO SCH (14:00)
[2020-09-18] MEDS ORDERED: EZET10TA48 PO (14:33)
[2020-09-18] MEDS ORDERED: FLUO40CA2 PO (14:33)
[2020-09-18] MEDS ORDERED: LIOT5TAB10 PO (14:33)
[2020-09-18] MEDS ORDERED: LISI-170 PO (14:33)
[2020-09-18] MEDS ORDERED: ATEN25TA PO (14:33)
[2020-09-18] MEDS ORDERED: AMLO-211 PO (14:33)
[2020-09-18] MEDS: ENOXAPARIN 40 MG/0.4 ML SQ SCH (15:56)
[2020-09-18] MEDS ORDERED: HYDR50CA PO (16:17)
[2020-09-18] MEDS ORDERED: THIA100T67 PO (21:48)
== END 2020-09-18 16:40 | disposition home or self-care (01) | DRG 896 ==
LOC: ED 08:52 → ORIP 11:42 → 4EST 17:13
PROVIDERS: ADMIT Hospitalist; ATTEND Internal Medicine
DX: F10.239 Alcohol dependence with withdrawal, unspecified (principal); G93.41 Metabolic encephalopathy; E87.2 Acidosis; F13.20 Sedative, hypnotic or anxiolytic dependence, uncomplicated; F33.1 Major depressive disorder, recurrent, moderate; K70.10 Alcoholic hepatitis without ascites; E78.5 Hyperlipidemia, unspecified; F10.24 Alcohol dependence with alcohol-induced mood disorder; F41.9 Anxiety disorder, unspecified; G89.29 Other chronic pain; I10 Essential (primary) hypertension; M79.7 Fibromyalgia; Z79.899 Other long term (current) drug therapy; Z85.828 Personal history of other malignant neoplasm of skin; Z91.14 Patient's other noncompliance with medication regimen; Y90.9 Presence of alcohol in blood, level not specified; Z71.41 Alcohol abuse counseling and surveillance of alcoholic
CPT/HCPCS: 36415; 70450; 70553; 76700; 80053; 80320; 81001; 82140; 83605; 83690; 83735; 84100; 85025; 93005; 96361; 96374; G0378; J1650; J2405; J3411; J3475; J3480; J7042; Q0162; A9575; G0480; J1630; J2060; J7030